=== PATIENT | female | born 1980 | race African-American/Black ===

== ENCOUNTER 2016-12-22 13:00 | Emergency (ER) | payer OTHER ==
--- NOTE | ~2016-12-22 | US61 ---
[facility] A Service of [facility] RADIOLOGY TEXT RESULTS PATIENT: CURT DEMARCO LOCATION: SED : 78 UNIT #: [id number] AGE: [address]: Cristóbal Leonard MD SEX: F ORDER DR: [id number] [address] [address] [id number] E MR#: [id number] Acc #: [id number] NAME: CURT DEMARCO : 1980 SEX: F STUDY DATE/TIME: 12/22/2016 16:17 UNIT: SED ROOM: STUDY DESCRIPTION: US /Mat <14Wk / Attending Physician: Cristóbal Leonard M.D. Ordering Physician: Cristóbal Leonard M.D. Primary Care Physician: Primary Care Physician No MEDICAL IMAGING REPORT This report is preliminary unless electronic signature is present. EXAM Pelvic ultrasound, 12/22/2016 HISTORY with a quantitative beta HCG 18,000. Right side pelvic pain for 1 week. FINDINGS Transabdominal and transvaginal pelvic ultrasound was performed. The bladder is normal in appearance. The uterus measures 10.8 cm craniocaudal x 4.8 cm transverse x 4.5 cm AP. There is an intrauterine gestational sac with diameter 16.6 mm characteristic of gestational age of 6 weeks 4 days. A yolk sac was seen but no pole was seen at this time. Clinical correlation is recommended. The left ovary measured 2.5 cm x 3 cm x 1.5 cm while the right ovary measured 3.2 cm x 2.5 cm x 2.7 cm. There is a 1.5 cm cystic lesion on the right ovary which may represent a corpus luteum. Normal blood flow is seen to both ovaries. There is no free fluid in the pelvis. IMPRESSION 1. There is an intrauterine gestational sac with sac diameter characteristic of gestational age of 6 weeks 4 days. A normal yolk sac was seen but no pole is seen at this time, possibly due to early date of . Clinical correlation is recommended. 2. No adnexal mass. No free fluid in the pelvis. Dictated by... Clemente Self M.D. THIS IS AN ELECTRONICALLY VERIFIED REPORT [facility] A Service of [facility] RADIOLOGY TEXT RESULTS PATIENT: CURT DEMARCO LOCATION: [facility] [place] : [birth year] UNIT #: [id number] AGE: [address]: Cristóbal Leonard MD SEX: F ORDER DR: Clemente Self M.D. at 12/23/2016 10:27 AM WENDY/sai TD: 12/22/2016 21:35 JOB #: [id number] MEDICAL IMAGING REPORT Page 1 of 1
[~2016-12-22 13:00] MED LIST: BACTRIM DS TABL1 TA1 PO; BENTYL20 M1 PO; FLAGYL; MOTRIN600 M2 PO; NO MEDICATIONS; PRENATAL ONE T1 EACH PO; TYLENOL #3 PO; VIBRAMYCIN100 M1 PO; ZOFRAN ODT4 MG PO; ZOFRAN ODT4 MG SL
[2016-12-22 13:41] LABS: URINE SOURCE CLEAN CATCH
[2016-12-22 13:44] LABS: URINE APPEARANCE CLEAR; URINE BILIRUBIN NEG (NEG); URINE BLOOD NEG (NEG); URINE COLOR YELLOW; URINE GLUCOSE NEG (NORM); URINE KETONE NEG (NEG); URINE LEUKOCYTE ESTERASE NEG (NEG); URINE NITRATE NEG (NEG); URINE PROTEIN NEG (NEG); URINE UROBILINOGEN 0.2 MG/DL (NORM)
[2016-12-22 13:45] LABS: MICRO INDICATED? NO
== END 2016-12-22 18:02 | disposition home or self-care (01) ==
LOC: SED 13:00
PROVIDERS: Emergency Medicine
DX: O99.89 Other specified diseases and conditions complicating pregnancy, childbirth and the puerperium (principal); R10.30 Lower abdominal pain, unspecified; Z3A.01 Less than 8 weeks gestation of pregnancy
CPT/HCPCS: 36415; 76801; 76817; 81003; 84702; 84703; 99284